=== PATIENT | male | born 1990 | race Hispanic/Latino ===

== ENCOUNTER 2019-09-13 01:17 | Emergency (ER) | payer BC ==
[~2019-09-13] VITALS: Ht 182.9 cm; Wt 117.9 kg
[2019-09-13] MEDS ORDERED: KETOROLAC TROMETHAMINE 60 MG/2 ML VIAL IM ONE (01:30)
--- NOTE | 2019-09-13 01:31 | Emergency Department Note ---
History of Present Illnes History of Present Illness Chief Complaint: Back Pain History of Present Illness This is a 29 year old male with sudden onset of R flank pain 1 hour prior to arrival. Historian: Patient Arrival Mode: Car Onset (how long ago): hour(s) Radiation: Reports non-radiation, Reports flank Duration (how long): hour(s) (2) Progression: worsening Chronicity: new Relieving factors: immobilization, rest Exacerbating factors: movement Associated symptoms: Reports denies other symptoms Treatments prior to arrival: none Past Medical/Family History Physician Review I have reviewed the patient's past medical and family history. Any updates have been documented here. Review of Systems Review of Systems Constitutional: Reports no symptoms EENTM: Reports no symptoms Cardiovascular: Reports no symptoms Respiratory: Reports no symptoms Gastrointestinal: Reports no symptoms Genitourinary: Reports pain Musculoskeletal: Reports no symptoms Integumentary: Reports no symptoms Neurological: Reports no symptoms Psychological: Reports no symptoms Endocrine: Reports no symptoms Hematological/Lymphatic: Reports no symptoms Physical Exam Related Data Allergies: Coded Allergies: No Known Allergies (Unverified , 09/13/19) Triage Vital Signs Vital Signs Date Time Temp Pulse Resp B/P (MAP) Pulse Ox O2 Delivery O2 Flow Rate FiO2 09/13/19 01:27 98.3 81 19 165/98 99 Room Air Vital signs reviewed: Yes Physical Exam CONSTITUTIONAL HENT EYES NECK PULMONARY CARDIOVASCULAR GASTROINTESTINAL GENITOURINARY SKIN MUSCULOSKELETAL NEUROLOGICAL PSYCHOLOGICAL Results Laboratory Lab results reviewed: Yes Laboratory comments UA : few bacteria Imaging Imaging results reviewed: Yes Impressions [place] [id number] Patient Name: ISAURA TESFAYE MR #: [id number] : 1990 Age/Sex: 29/M Req #: [id number] Adm Physician: Ordered by: KALEIGH GARCIA DO Report #: [id number] Location: ER Room/Bed: Procedure: [id number] CT/CT ABDOMEN/PELVIS WO Exam Date: 09/13/19 Exam Time: 0215 REPORT STATUS: Signed EXAMINATION: CT of the abdomen and pelvis without contrast. TECHNIQUE: Spiral CT images of the abdomen and pelvis were performed from the lung bases to the lesser trochanters. No intravenous contrast was given per renal stone protocol. Coronal and sagittal reformatted images were obtained. COMPARISON: None. CLINICAL HISTORY:Right flank pain, right lower back pain for one hour DISCUSSION: ABSENCE OF INTRAVENOUS CONTRAST DECREASES SENSITIVITY FOR DETECTION OF FOCAL LESIONS AND VASCULAR PATHOLOGY. ABDOMEN/PELVIS: LOWER THORAX: Unremarkable. HEPATOBILIARY: No focal hepatic lesions. No intra or extrahepatic biliary ductal dilation. GALLBLADDER: No radio-opaque stones or sludge. No wall thickening. SPLEEN: No splenomegaly. PANCREAS: No focal masses or ductal dilatation. ADRENALS: No adrenal nodules. KIDNEYS/URETERS: Right: 4 mm obstructing calculus in the proximal right ureter (series 3, image 95), results in mild proximal hydroureter and mild right hydronephrosis. No other right renal or ureteral calculi. No contour abnormality or perinephric stranding. Left: Punctate nonobstructing calculus in the interpolar region (series 3, image 70 and coronal image 72). No other renal or ureteral calculi, hydronephrosis or obstruction. No contour abnormalities or perinephric stranding PELVIC ORGANS/BLADDER: Bladder is unremarkable, without focal lesions or stones. Prostate is unremarkable. PERITONEUM/RETROPERITONEUM: No free air or fluid. LYMPH NODES: No intra-abdominal,retroperitoneal, pelvic or inguinal lymphadenopathy. VESSELS: Mild atherosclerotic calcification of the distal abdominal aorta GI TRACT: No bowel dilation or evidence of obstruction. Appendix is normal. Stomach is unremarkable. BONES AND SOFT TISSUES: No aggressive lytic or suspicious focal sclerotic lesions. Soft tissues are grossly unremarkable. IMPRESSION: 1. 4 mm obstructing calculus in the proximal right ureter results in mild proximal hydroureter and mild right hydronephrosis. 2. Punctate nonobstructing calculus in the left interpolar region. Signed by: Dr. Mena Ahmadi M.D. on 09/13/2019 3:30 AM Dictated By: MENA AHMADI MD 9 Transcribed By: DANAY on 09/13/19329 COPY TO: KALEIGH GARCIA DO~ Assessment & Plan Medical Decision Making MDM Diff Dx : uterolithiasis, UTI, hematuria, pyelonephritis Assessment & Plan Final Impression: (1) Right kidney stone Depart Disposition: HOME, SELF-CARE KALEIGH GARCIA DO Sep 13, 2019 01:31
[2019-09-13 02:34] LABS: CLARITY,URINE CLOUDY (CLEAR); COLOR,URINE YELLOW (YELLOW)
[2019-09-13 02:35] LABS: BILIRUBIN,URINE NEGATIVE (NEGATIVE); KETONES,URINE NEGATIVE (NEGATIVE); LEUKOCYTE ESTERASE ,URINE NEGATIVE (NEGATIVE); NITRITE,URINE NEGATIVE (NEGATIVE); PROTEIN,URINE DIPSTICK NEGATIVE (NEGATIVE); URINE UROBILINOGEN 0.2 mg/dL (0.2 - 1)
[2019-09-13 02:52] LABS: BACTERIA,URINE FEW /HPF; EPITHELIAL CELLS,URINE FEW /LPF; RBC,URINE 21-50 /HPF (0-5); WBC,URINE (MAN) 0-5 /HPF (0-5)
--- NOTE | 2019-09-13 03:33 | Diagnostic Imaging Report ---
EXAMINATION: CT of the abdomen and pelvis without contrast. TECHNIQUE: Spiral CT images of the abdomen and pelvis were performed from the lung bases to the lesser trochanters. No intravenous contrast was given per renal stone protocol. Coronal and sagittal reformatted images were obtained. COMPARISON: None. CLINICAL HISTORY:Right flank pain, right lower back pain for one hour DISCUSSION: ABSENCE OF INTRAVENOUS CONTRAST DECREASES SENSITIVITY FOR DETECTION OF FOCAL LESIONS AND VASCULAR PATHOLOGY. ABDOMEN/PELVIS: LOWER THORAX: Unremarkable. HEPATOBILIARY: No focal hepatic lesions. No intra or extrahepatic biliary ductal dilation. GALLBLADDER: No radio-opaque stones or sludge. No wall thickening. SPLEEN: No splenomegaly. PANCREAS: No focal masses or ductal dilatation. ADRENALS: No adrenal nodules. KIDNEYS/URETERS: Right: 4 mm obstructing calculus in the proximal right ureter (series 3, image 95), results in mild proximal hydroureter and mild right hydronephrosis. No other right renal or ureteral calculi. No contour abnormality or perinephric stranding. Left: Punctate nonobstructing calculus in the interpolar region (series 3, image 70 and coronal image 72). No other renal or ureteral calculi, hydronephrosis or obstruction. No contour abnormalities or perinephric stranding PELVIC ORGANS/BLADDER: Bladder is unremarkable, without focal lesions or stones. Prostate is unremarkable. PERITONEUM/RETROPERITONEUM: No free air or fluid. LYMPH NODES: No intra-abdominal,retroperitoneal, pelvic or inguinal lymphadenopathy. VESSELS: Mild atherosclerotic calcification of the distal abdominal aorta GI TRACT: No bowel dilation or evidence of obstruction. Appendix is normal. Stomach is unremarkable. BONES AND SOFT TISSUES: No aggressive lytic or suspicious focal sclerotic lesions. Soft tissues are grossly unremarkable. IMPRESSION: 1. 4 mm obstructing calculus in the proximal right ureter results in mild proximal hydroureter and mild right hydronephrosis. 2. Punctate nonobstructing calculus in the left interpolar region. Signed by: Dr. Esvin Ahmadi M.D. on 09/13/2019 3:30 AM
== END 2019-09-13 03:13 | disposition home or self-care (01) ==
LOC: ER 01:35
DX: N20.0 Calculus of kidney (principal); R10.9 Unspecified abdominal pain; M54.5 Low back pain
CPT/HCPCS: 74176; 81001; 99284; J1885

== ENCOUNTER → 2020-09-25 | Outpatient (CLI) | payer BC | LOC: RAD 15:36 | PROVIDERS: ATTEND Urology | DX: N20.0 Calculus of kidney (principal) | CPT/HCPCS: 74018 ==